=== PATIENT | male | born 1980 | race Caucasian/White ===

== ENCOUNTER 2024-09-15 14:59 | Outpatient (REF) | payer OTHER, SELFPAY ==
--- NOTE | 2024-09-15 | EMG_ITS ---
Chief complaint: Chronic numbness on left 3rd-5th digits, pain on left elbow and triceps area. History of C6-[address] Dia 04/18/2023. Reason for referral: Evaluate for ulnar neuropathy versus radiculopathy Referred by: Dr. Brown Procedure done: Left upper extremity NCS/EMG Precautions and/or limitations: Previous cervical surgery - For this reason paraspinal EMG examination deferred, not reliable to show accurate diagnostic evidence evidence The limb temperature was monitored continuously and remained between 32-36 degrees C during the performance of the NCS. Ulnar motor NCS was performed with moderate elbow flexion between 70-90 degrees, with across-elbow distance of 10 cm. Nerve Conduction Studies Anti Sensory Summary Table ?Stim Site NR Onset (ms) Norm Onset (ms) Peak (ms) Norm Peak (ms) O-P Amp (?V) Norm O-P Amp Site1 Site2 Delta-0 (ms) Dist (cm) Brett (m/s) Norm Brett (m/s) Left Median Anti Sensory (2nd Digit) Wrist ? 2.4 3.0 <3.6 47.6 >10 Wrist 2nd Digit 2.4 14.0 58 Left Radial Anti Sensory (Thumb) Forearm ? 1.3 1.9 <3.1 35.4 Forearm Thumb 1.3 0.0 Left Ulnar Anti Sensory (5th Digit) Wrist ? 2.0 3.3 <3.7 5.6 >15.0 Wrist 5th Digit 2.0 14.0 70 Motor Summary Table ?Stim Site NR Onset (ms) Norm Onset (ms) O-P Amp (mV) Norm O-P Amp iAmp (mV) Amp (1st) (%) Site1 Site2 Delta-0 (ms) Dist (cm) Brtet (m/s) Norm Brett (m/s) Left Median Motor (Abd Poll Brev) Wrist ? 3.6 <3.9 7.5 >4.5 9.2 100.0 Elbow Wrist 4.1 23.0 56 >45 Elbow ? 7.7 7.3 9.1 97.3 Left Ulnar Motor (Abd Dig Minimi) Wrist ? 3.0 <3.0 7.3 >5 8.3 100.0 B Elbow Wrist 3.4 21.0 62 >45 B Elbow ? 6.4 6.2 7.2 84.9 A Elbow B Elbow 2.6 10.0 38 >45 A Elbow ? 9.0 6.2 7.1 84.9 EMG ?Side Muscle Nerve Root Ins Act Fibs Psw Amp Dur Poly Recrt Int Pat Comment Left 1stDorInt Ulnar C8-T1 Nml Nml Nml Nml Nml 1+ Nml Complete Left FlexCarRad Median C6-7 Nml Nml Nml Nml Nml 0 Nml Complete Left Biceps Musculocut C5-6 Nml Nml Nml Nml Nml 0 Nml Complete Left Triceps Radial C6-7-8 Nml Nml Nml Nml Nml 0 Nml Complete Left Deltoid Axillary C5-6 Nml Nml Nml Nml Nml 0 Nml Complete Left FlexCarpiUln Ulnar C8,T1 Nml Nml Nml Nml Nml 0 Nml Complete FINDINGS: Left ulnar motor nerve showed normal distal latency, normal amplitude and slow conduction velocity across elbow. Left ulnar sensory nerve showed normal peak latency but small amplitude. All other nerves tested were within normal. Concentric needle EMG was performed in selected muscles of the left upper extremity. Study revealed signs of electric abnormalities as shown in the table above. Left FDI showed polyphasia. IMPRESSION: 1. This is an abnormal study. 2. 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 3. There is no electrodiagnostic evidence for median neuropathy, brachial plexopathy, or cervical radiculopathy. Thank you for your kind referral. Chelsy Garcia MD, GALILEA Board Certified, [place] Board [employer] Medicine and Rehabilitation (ABPMR) Board Certified, [place] Board of Electrodiagnostic Medicine (ABEM) [address] [id number] [facility]
--- OUTSIDE RECORDS SUMMARY | 2024-09-15 15:03 | XMS_ITS | Clinical Summary ---
Author Organization [facility] [address] [place] [address] [place] [address] Phone Care Team Providers Care Supply Chain Consultant Name Role Phone Daniele Fraser MD Primary Care Provider [phone] Allergies No known active allergies Medications albuterol HFA (PROAIR HFA ; PROVENTIL HFA ; VENTOLIN HFA) 90 mcg/actuation inhaler Inhale 2 Puffs into the lungs every 6 hours as needed for Cough or Wheezing. 3 Active budesonide-formo teroL (SYMBICORT) 160-4.5 mcg/actuation inhaler INHALE 2 PUFFS INTO THE LUNGS TWICE A DAY 4 Active ibuprofen (ADVIL,MOTRIN) 600 mg tablet Active atorvastatin (LIPITOR) 40 mg tablet TAKE 1 TABLET BY MOUTH EVERY DAY 90 tablet 1 4 Active fluticasone propionate (FLONASE) 50 mcg/actuation nasal spray Administer 2 sprays into each nostril 1 (one) time each day. 5 Active levocetirizine (XYZAL) 5 mg tablet Take 1 tablet (5 mg total) by mouth 1 (one) time each day. 5 Active Spiriva Respimat 2.5 mcg/actuation inhalation spray Inhale 2 puffs by mouth 1 (one) time each day. 5 Active fluticasone furoate-vilanter oL (Breo Ellipta) 200-25 mcg/dose inhalerIndicatio ns:Moderate persistent asthma, unspecified whether complicated Inhale 1 puff by mouth 1 (one) time each day. 1 each 11 5 05/19/19 26 Active albuterol HFA (PROAIR HFA ; PROVENTIL HFA ; VENTOLIN HFA) 90 mcg/actuation inhalerIndicatio ns:Moderate persistent asthma, unspecified whether complicated Inhale 2 puffs by mouth every 6 (six) hours if needed for wheezing or shortness of breath. 1 each 11 5 05/19/19 26 Active tiotropium (Spiriva Respimat) 2.5 mcg/actuation inhalation sprayIndications :Moderate persistent asthma, unspecified whether complicated Inhale 2 puffs by mouth 1 (one) time each day. 1 each 12 5 05/19/19 26 Active gabapentin (NEURONTIN) 300 mg capsule Take 1 capsule (300 mg total) by mouth at bedtime. 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 He is happy to see improvement in the numbness and cramping he was experiencing in the left posterior arm and hand, states those symptoms are almost gone. He has some residual throbbing pain down the posterior arm, but states its about 65% better than preop. He has not required any pain medication the last few days, is not experiencing any incisional pain. He denies any fevers or wound drainage. Mr. Liriano is doing well postop, should hopefully see continued improvements with time. I asked him to call with any concerns or questions, can call for a follow- up appointment if he has any residual symptoms in 6 weeks. He did not need any refill on pain medication. We used [employer]licia #[id number]. All questions answered. Assessment & Plan (05/09/2024 4:17 PM EDT): Mr. Liriano 1 year status post left C6-7 foraminotomy. He says that after the surgery, he was pain-free. Unfortunately, about 2 or 3 months ago he developed pain into the left posterior shoulder, triceps down the ulnar aspect of the forearm with numbness in the 3rd through 5th digits of the left hand. He has been on a prednisone taper and says that it helps a little bit. On exam, he has left triceps weakness. Going to order x-rays of the cervical spine as well as a new MRI with and without contrast. He will follow-up with us after the is complete. Current every day smoker 01/11/2023 Mild intermittent asthma without complication Encounters Date Type Department Care Team Description 07/24/2024 10:30 AM EDT Treatment [address] [phone] Jayson Harrison, PT Cervical radiculopathy (Primary Dx) 07/24/2024 Telephone Internal Medicine - [address] [phone] Daniele Fraser MD Hypertension 06/30/2024 9:30 AM EDT Treatment [address] [phone] Yin Art, PT Cervical radiculopathy (Primary Dx) 06/16/2024 8:00 AM EDT Evaluation [address] [phone] Yin Art, PT Cervical radiculopathy (Primary Dx) from Last 3 Months Surgical History Surgery Date Site/Laterality Comments OTHER SURGICAL HISTORY 04/01/2023 PROCEDURE: HI FLOERNTINO FACETECTOMY & FORAMOTOMY 1 VRT SGM CERVICAL; COMMENT: Left C6-7 foraminotomy, Dr. Griggs Medical History Medical History Date Comments Mild intermittent asthma, uncomplicated DX:Mild intermittent asthma, uncomplicated Cervical disc disorder at C6 -C7 level with radiculopathy DX:Cervical disc disorder at C6-C7 level with radiculopathy Hypertension Family History Medical History Relation Name Comments No Known Problems Brother No Known Problems Father No Known Problems Maternal Grandfather No Known Problems Maternal Grandmother No Known Problems Mother No Known Problems Paternal Grandfather No Known Problems Paternal Grandmother No Known Problems Sister Relation Name Status Comments Brother Father Maternal Grandfather Maternal Grandmother Mother Paternal Grandfather Paternal Grandmother Sister Social History Tobacco Use Types Packs/Day Years Used Date Smoking Tobacco: Every Day Cigarettes Smokeless Tobacco: Never Tobacco Cessation:Ready to Q uit: Not Asked; Counseling Given: Not Answered Alcohol Use Standard Drinks/Week Comments Yes 0 (1 standard drink = 0.6 oz pur e alcohol) Sex and Gender Information Value Date Recorded Sex Assigned at Not on file Legal Sex Male 8:48 PM EST Gender Identity Not on file Sexual Orientation Not on file Obstetrics History Last Filed Vital Signs Vital Sign Reading Time Taken Comments Blood Pressure 151/96 05/18/2024 11:40 AM EDT Pulse 93 05/18/2024 11:40 AM EDT Temperature 35.8 C (96.5 F) 05/18/2024 11:40 AM EDT Respiratory Rate 16 05/18/2024 11:40 AM EDT Oxygen Saturation 94% 05/18/2024 11:40 AM EDT Inhaled Oxygen Concentration - - Weight 96.9 kg (213 lb 9.6 oz) 05/18/2024 11:40 AM EDT Height 175.3 cm (5' 9 ) 05/18/2024 11:40 AM EDT Body Mass Index 31.54 05/18/2024 11:40 AM EDT Plan of Treatment Upcoming Encounters Date Type Department Care Team (Late st Contact Info) Description 10/16/2024 11:30 AM EDT Treatment [facility] [address] [facility] [address] [place] [phone] Jayson Harrison, PT [address] [place] [address] 11/03/2024 10:30 AM EDT Office Visit Internal Medicine - [place] [address] [facility] [address] [place] [phone] Daniele Fraser MD [address] [facility] [address] [place] [address] 12/01/2024 9:30 AM EDT Office Visit Pulmonolgy - [address] [place] [phone] Malissa Chatman MD [address] [address] Health Maintenance Due Date Last Done Comments DTaP,Tdap,and Td Vaccines (1 - Tdap) 02/03/1999 Hepatitis B Vaccines (1 of 3 - 19+ 3-dose series) 02/03/1999 Pneumococcal Vaccine: Pediatrics (0 to 5 Years) and At-Risk Patients (6 to 49 Years) (1 of 2 - PCV) 02/03/1999 HIV Screening 03/19/2023 Hepatitis C Screening 03/19/2023 Social Influencers of Health Screening 03/19/2023 COVID-19 Vaccine (1 - 2023-2 5 season) 2023 Depression Screening 02/23/2024 04/12/2023 Influenza Vaccine (#1) 2024 Cholesterol Screening (Lipid Panel) 05/02/2029 05/02/2024, 04/23/2023 HIB Vaccines Aged Out No longer eligi ble based on patient's age to complete this topic HPV Vaccines Aged Out No longer eligi ble based on patient's age to complete this topic Hepatitis A Vaccines Aged Out No long er eligible based on patient's age to complete this topic IPV Vaccines Aged Out No longer eligi ble based on patient's age to complete this topic MMR Vaccines Aged Out No longer eligi ble based on patient's age to complete this topic Meningococcal ACWY Vaccine Aged Out N o longer eligible based on patient's age to complete this topic Meningococcal B Vaccine Aged Out No l onger eligible based on patient's age to complete this topic RSV Immunization Patients Under 20 months Aged Out No longer eligible b ased on patient's age to complete this topic Varicella Vaccines Aged Out No longer eligible based on patient's age to complete this topic Procedures Procedure Name Priority Date/Time Associated Diagnosis Comments LIPID PANEL WITH REFLEX TO DIRECT LDL Routine 05/02/2024 1:51 PM EDT Cervical radiculopathy Mild intermittent asthma without complication Elevated blood pressure reading Pain in lateral portion of left knee DEPRESSION SCREENING Routine 04/12/2023 from Last 3 Months or Most Recently Relevant to Health Maintenance Results * (ABNORMAL) Lipid panel with reflex to direct LDL (05/02/2024 1:51 PM EDT) Cholesterol 326(H) 0 - 200 mg/dL LAB CHEMISTRY METHOD 05/02/2024 7:07 PM EDT [facility] Triglycerides 389(H) 0 - 150 mg/dL LAB CHEMISTRY METHOD 05/02/2024 7:07 PM EDT [facility] HDL 37(L) >=40 mg/dL LAB CHEMISTRY METHOD 05/02/2024 7:07 PM EDT [facility] LDL Calculated 211(H) 0 - 100 mg/dL LAB CHEMISTRY METHOD 05/02/2024 7:07 PM EDT [facility] VLDL Cholesterol Trevon 77.8 mg/dL LAB CHEMISTRY METHOD 05/02/2024 7:07 PM EDT [facility] Non HDL Chol. (LDL+VLDL) 289(H) <145 mg/dL LAB CHEMISTRY METHOD 05/02/2024 7:07 PM EDT [facility] Chol/HDL Ratio 8.8(H) 0.0 - 4.4 LAB CHEMISTRY METHOD 05/02/2024 7:07 PM EDT [facility] Blood Venous blood specimen / Unknown Venipuncture / Unknown 05/02/2024 1:51 PM EDT 05/02/2024 1:51 PM EDT us Daniele Fraser MD LAB BLOOD ORDERABLES Final Resul t [facility] [address] [place] [address], * Depression Screening (04/12/2023) Depression Screening Abstracted us Historical Provider HEALTH MAINTENANCE Final Result from Last 3 Months or Most Recently Relevant to Health Maintenance Insurance [facility] [address] Care Teams Supply Chain Consultant Relationship Specialty Start Date End Date Daniele Fraser MD [address] [place] [id number] PCP - General 12/23/23
== END 2024-09-15 15:00 | disposition home or self-care (01) ==
LOC: HO.NEURO 14:59
PROVIDERS: Visit Provider Physical Medicine & Rehabilitation
DX: M54.12 Radiculopathy, cervical region (principal); G56.12 Other lesions of median nerve, left upper limb; R20.0 Anesthesia of skin; Z98.890 Other specified postprocedural states
CPT/HCPCS: 95886; 95909

== ENCOUNTER → 2024-09-15 15:07 | Outpatient (BNV) | payer OTHER, SELFPAY | PROVIDERS: Visit Provider Physical Medicine & Rehabilitation | DX: G56.22 Lesion of ulnar nerve, left upper limb (principal) | CPT/HCPCS: 95886; 95909 ==